=== PATIENT | female | born 1950 | race Caucasian/White ===

== ENCOUNTER → 2020-04-07 11:17 | Outpatient (CLI) | payer MEDICARE, SELFPAY ==
--- NOTE | ~2020-04-07 | MM_ITS ---
EXAMINATION: MM screening essence BI w jorge HISTORY: Screening mammogram TECHNIQUE: Craniocaudal and mediolateral oblique 3-D tomosynthesis images were obtained and synthetic 2-D images were generated. CAD analysis was submitted and interpreted. COMPARISON: 06/05/2017 bilateral digital screening mammogram BREAST PARENCHYMAL COMPOSITION: The breasts are almost entirely fatty. FINDINGS: There is no evidence of suspicious mass, calcification, or architectural distortion to sugg est malignancy in either breast. There has been no suspicious interval change. IMPRESSION: 1. No mammographic evidence of malignancy. 2. Recommend routine screening mammography in one year. BI-RADS Category 1: Negative Reviewed, dictated and finalized at location A. ECT DESIGNER
== END ==
PROVIDERS: PCP Family Medicine; Visit Provider Nurse Practitioner
DX: Z12.31 Encounter for screening mammogram for malignant neoplasm of breast (principal)
CPT/HCPCS: 77063; 77067

== ENCOUNTER 2021-03-30 00:29 | Day surgery (SDC) | payer MEDICARE, SELFPAY ==
[2021-03-22 14:24] VITALS: BMI 31.1
--- NOTE | 2021-03-29 09:14 | PM.HPGS ---
History of Present Illness History of Present Illness Consent: Risks, benefits, and alternatives have been discussed and questions answered. Patient agrees to proceed with procedure. Chief complaint: GERD, neoplasm screening Narrative: Latonia Mayfield is a 70 year old female for evaluation of GERD. States she had reflux symptoms for well over 5 years now. Currently she is on famotidine 2 pills everyday (she has self-medicated for more then 5 years now, she is unsure of the dose) with fairly good control but states she will have breakthrough reflux and epigastric discomfort that radiates to her RUQ and around her back with larger meals and eating to much pizza or red sauces, wine, greasy foods or fried foods. States symptoms will last about an hour or so then resolve. She denies any nausea or vomiting, no dysphagia/odynophagia/black stools/weight loss. She is on meloxicam daily for arthritis, prior to this she was taking Ibuprofen. States she will have symptoms by midday if she misses a dose. She never had an EGD. She tells that she had an abdominal ultrasound 2 years ago with normal gallbladder and no stones. She denies any changes in bowel habits, no diarrhea/constipation/hematochezia. Her last colonoscopy was 10 years ago. She is due for her colonoscopy. No family hx of GI cancers. Review of Systems Review of Systems: All systems reviewed & are unremarkable except as noted in HPI and below PMFSH Past Medical History Medical History GERD without esophagitis Hypertension Migraines Mixed hyperlipidemia Rheumatoid arthritis Surgical History Surgical History History of conization of cervix Hx of breast reduction, elective Family History Family History Father , 71 Lung cancer Mother , 84 No problems noted. Sibling Cervical dysplasia Social History Social History Smoking status: Former smoker Tobacco type: cigarettes Alcohol intake: current Drinks per week: 5 Substance use type: does not use Living arrangements: with family Gender identity (if verbalized by the patient): Female Sexual Orientation (if Verbalized by the Patient): Straight or Heterosexual Agree to blood products: Yes Meds Home Medications and Allergies Home Medications Medication Instructions Recorded Confirmed Type lisinopril 40 mg tablet 40 mg PO DAILY 02/11/20 03/30/21 History fluoxetine 20 mg capsule 20 mg PO DAILY 02/13/20 03/30/21 History meloxicam 7.5 mg tablet 7.5 mg PO DAILY 02/13/20 03/30/21 History famotidine 20 mg tablet 20 mg PO DAILY 02/23/21 03/30/21 History Allergies Allergy/AdvReac Type Severity Reaction Status Date / Time No Known Allergies Allergy Verified 03/30/21 07:37 Exam Const: General: alert Orientation/consciousness: patient oriented x3 Resp: Auscultation: clear to auscultation bilaterally Cardio: Rhythm: regular rhythm GI: GI Palp: Yes Soft to palpation and No Tenderness to palpation present (GI) Neuro: General: patient oriented x3 Assessment and Plan Assessment and plan (1) GERD (gastroesophageal reflux disease): Code(s): K21.9 - Gastro-esophageal reflux disease without esophagitis Status: Acute Assessment and Plan: EGD with possible biopsy or dilatation or cautery. (2) Colon cancer screening: Code(s): Z12.11 - Encounter for screening for malignant neoplasm of colon Status: Acute Assessment and Plan: Colonoscopy with possible biopsy or polypectomy or cautery or injection of substances.
[2021-03-30 07:38] VITALS: BP 136/85; PULSE 102; RESP 16; TEMP 36.3; O2SAT 98
[2021-03-30] MEDS: LACTATED RINGERS 1,000 ML 150 ML IV CONT (07:40)
--- NOTE | 2021-03-30 07:58 | P.PNAN_ITS ---
Anes - Initial Pre Proc Eval Procedure: Operation Date: 03/30/21 09:00 Proposed Procedures p Esophagogastroduodenoscopy & Screening Colonoscopy - Jayden Disla MD Date/Time: 03/30/21 07:58 Surgeon: Jayden Disla MD Pre Op Diagnosis: GERD, neoplasm screening Patient Data Age: 70 Gender: F Height: 1.57 m Weight: 78 kg Last Vital Signs Temp 36.3 C L 03/30/21 07:38 Pulse 102 H 03/30/21 07:38 Resp 16 03/30/21 07:38 BP 136/85 03/30/21 07:38 Pulse Ox 98 03/30/21 07:38 Allergies Allergy/AdvReac Type Severity Reaction Status Date / Time No Known Allergies Allergy Verified 03/30/21 07:37 Home Medications Medication Instructions Recorded Confirmed Type lisinopril 40 mg tablet 40 mg PO DAILY 02/11/20 03/30/21 History fluoxetine 20 mg capsule 20 mg PO DAILY 02/13/20 03/30/21 History meloxicam 7.5 mg tablet 7.5 mg PO DAILY 02/13/20 03/30/21 History famotidine 20 mg tablet 20 mg PO DAILY 02/23/21 03/30/21 History Patient hx anesthesia problems: none Family hx anesthesia problems: none Results Review: All pre-operative results and documents have been reviewed as part of the pre-operative evaluation. [facility] Past Medical History Medical History GERD without esophagitis Hypertension Migraines Mixed hyperlipidemia Rheumatoid arthritis Surgical History Surgical History History of conization of cervix Hx of breast reduction, elective Family History Family History Father , 71 Lung cancer Mother , 84 No problems noted. Sibling Cervical dysplasia Social History Social History Smoking status: Former smoker Tobacco type: cigarettes Alcohol intake: current Drinks per week: 5 Substance use type: does not use Living arrangements: with family Gender identity (if verbalized by the patient): Female Sexual Orientation (if Verbalized by the Patient): Straight or Heterosexual Agree to blood products: Yes Anes - Eval Final PreProcedure Day of Procedure 03/30/21 07:58 Patient weight: obese Heart: regular rate and rhythm Lungs: clear to auscultation Airway: Mallampati scale class II Last oral intake: >/= 8 hours ASA classification: II Emergent: no Anesthetic plan: proceed Anesthesia type and monitoring: general GIVS and standard monitoring Results Review: All pre-operative results and documents have been reviewed as part of the pre-operative evaluation. Informed Consent: The patient's anesthetic plan and its attendant risks and benefits were discussed with the patient/family/POA. Questions were solicited and answers provided to the satisfaction of the patient/family/POA.
--- NOTE | 2021-03-30 09:02 | SUR.OPER ---
EGD END AT 0856. COLONOSCOPY START AT 0902.
[2021-03-30] MEDS: BENZOCAINE (*SP) 60 ML SPRAY CAN (HURRICAINE) 1 SPRAY MUCOUS MEM (09:09)
[2021-03-30 09:19] VITALS: BP 112/61; PULSE 74; RESP 18; O2SAT 100
[2021-03-30 09:29] VITALS: BP 148/84; PULSE 68; RESP 18; O2SAT 100
[2021-03-30 09:39] VITALS: BP 146/62; PULSE 72; RESP 18; O2SAT 100
== END 2021-03-30 10:00 | disposition home or self-care (01) ==
PROVIDERS: PCP Family Medicine; Visit Provider Internal Medicine Gastroenterology
PROC: 0DJ08ZZ Inspection of Upper Intestinal Tract, Via Natural or Artificial Opening Endoscopic (ICD-10-PCS; CPT 43235; principal; 2021-03-30 09:00)
DX: Z12.11 Encounter for screening for malignant neoplasm of colon (principal); K63.5 Polyp of colon; K21.9 Gastro-esophageal reflux disease without esophagitis; K57.30 Diverticulosis of large intestine without perforation or abscess without bleeding; K29.70 Gastritis, unspecified, without bleeding; I10 Essential (primary) hypertension; M06.9 Rheumatoid arthritis, unspecified; E78.2 Mixed hyperlipidemia
CPT/HCPCS: 45385; 43239; 87081; 88305; J2704; J7120

== ENCOUNTER 2023-08-02 12:21 | Outpatient (CLI) | payer MEDICARE, SELFPAY ==
--- NOTE | ~2023-08-02 | DEXA_ITS ---
Bone Density Report Name: MARNIE ZAMBRANO Age: 72 Sex: Female Ethnicity: White Date of : 1950 Indication: postmenopausal; screening for osteoporosis; rheumatoid arthritis; Referring Provider: BELKIS, JOSE Pisano Study: Bone densitometry was performed. Exam Date: August 02, 2023 Accession number: [id number] Bone Density: Region BMD T-score Z-score Classification AP Spine (L1-L4) 1.053 0.1 2.3 Normal Femoral Neck (Left) 0.741 -1.0 0.9 Normal Total Hip (Left) 0.838 -0.9 0.8 Normal Femoral Neck (Right) 0.703 -1.3 0.6 Osteopenia Total Hip (Right) 0.795 -1.2 0.4 Osteopenia Total Hip Mean 0.817 -1.1 0.6 Osteopenia World Health Organization criteria for BMD impression classify patients as: Normal (T-score at or above -1.0), Osteopenia (T-score between -1.0 and -2.5), or Osteoporosis (T-score at or below -2.5). 10-year Fracture Risk(1): Major Osteoporotic Fracture 12% Hip Fracture 1.9% Reported Risk Factors: [place] (), Neck BMD=0.703, BMI=30.5, rheumatoid arthritis (1) FRAX(R) Version 3.08. Fracture probability calculated for an untreated patient. Fracture probability may be lower if the patient has received treatment. Clinical Information Provided by Patient: Has rheumatoid arthritis Has used the following medications: Vitamin D Patient maximum height was 62.6 Menopause Age: 51 No regular weight bearing exercise Does not regularly consume dairy products Drinks caffeinated beverages Onset of menses at age 13 Number of children 4 Impression: The patient has low bone mass, based on the Right Femoral Neck T-score. The patient has an estimated ten-year risk of hip fracture of 1.9% and an estimated ten-year risk of major fracture of 12%, based on the WHO FRAX algorithm. Discussion: BONE DENSITY IS LOW AT ONE OR MORE SKELETAL SITES. This patient's lowest T-score is low at one or more skeletal sites. It meets the World Health Organization's (WHO) criteria for ?low bone mass? (T-score between -1.0 and -2.5). The patient's 10-year risk of fracture as calculated by FRAX is less than the threshold where pharmacological therapy is recommended by the National Osteoporosis Foundation (NOF). However, all treatment decisions require clinical judgment and consideration of individual patient factors, including patient preferences, comorbidities, previous drug use, risk factors not captured in the FRAX model (e.g., frailty, falls, vitamin D deficiency, increased bone turnover, interval significant decline in bone density) and possible under or overestimation of fracture risk by FRAX. The patient should follow a healthful lifestyle (good nutrition with adequate calcium and vitamin D, and appropriate weight-bearing exercise). Follow-Up: Consider repeating this study in 2 to 3 years to reassess thi
--- NOTE | ~2023-08-02 | MM_ITS ---
EXAMINATION: MM screening essence BI w jorge HISTORY: Screening TECHNIQUE: Craniocaudal and mediolateral oblique 3-D tomosynthesis images were obtained and synthetic 2-D images were generated. CAD analysis was submitted and interpreted. COMPARISON: Comparison to multiple prior studies sequentially, with oldest reviewed study dated 06/09. BREAST PARENCHYMAL COMPOSITION: Not Dense: Breast are almost entirely fatty. FINDINGS: There are stable benign breast calcifications. There is no evidence of suspicious mass, mela cification, or architectural distortion to suggest malignancy in either breast. There has been no tonja picious interval change. IMPRESSION: 1. No mammographic evidence of malignancy. 2. Recommend routine screening mammography in one year. BI-RADS Category 1: Negative Reviewed, dictated and finalized at location B.
== END 2023-08-02 12:22 ==
LOC: MICIMG 12:22
PROVIDERS: PCP Family Medicine; Visit Provider Nurse Practitioner Adult Health
DX: Z12.31 Encounter for screening mammogram for malignant neoplasm of breast (principal); M81.0 Age-related osteoporosis without current pathological fracture; M85.89 Other specified disorders of bone density and structure, multiple sites
CPT/HCPCS: 77063; 77067; 77080